=== PATIENT | male | born 1990 | race Caucasian/White ===

== ENCOUNTER 2018-10-24 09:02 | Inpatient (IN) | payer SELFPAY ==
[~2018-10-24] VITALS: Ht 172.7 cm; Wt 77.3 kg
[2018-10-24 10:04] LABS: APPEARANCE CLEAR (CLEAR); BILIRUBIN NEGATIVE (NEGATIVE); COLOR YELLOW (YELLOW); GLUCOSE NEGATIVE (NEGATIVE); KETONE NEGATIVE (NEGATIVE); NITRITE NEGATIVE (NEGATIVE); PROTEIN NEGATIVE (NEGATIVE); SPECIFIC GRAVITY 1.015 (1.005-1.020); UROBILINOGEN NORMAL (NORMAL)
[2018-10-24 10:06] LABS: BASOPHILS 0.3 % (0-2); EOSINOPHILS 0.2 % (0-7); HEMATOCRIT 43.2 % (42.0-54.0); HEMOGLOBIN 16.5 g/dL (13.5-17.5); IMMATURE GRANULOCYTES 0.2 % (0-5); LYMPHOCYTES 18.1 % (15-50); MCH 32.8 pg (26.0-34.0); MCHC 38.2 g/dL (31.0-37.0); MCV 85.9 fL (80.0-100.0); MEAN PLATELET VOLUME 9.2 fL (7.4-10.4); NEUTROPHILS 70.2 % (40-80); PLATELET COUNT 157 10x3/uL (130-400); RBC 5.03 10x6/uL (4.20-6.10); RDW 13.1 % (11.5-14.5); WBC 8.6 10x3/uL (4.8-10.8)
[2018-10-24 10:09] LABS: UDS - AMPHET NEGATIVE QUAL (NEGATIVE); UDS - BARB NEGATIVE QUAL (NEGATIVE); UDS - BENZO NEGATIVE QUAL (NEGATIVE); UDS - COCAINE NEGATIVE QUAL (NEGATIVE); UDS - OPIATE NEGATIVE QUAL (NEGATIVE); UDS - PCP NEGATIVE QUAL (NEGATIVE); UDS - THC NEGATIVE QUAL (NEGATIVE)
[2018-10-24 10:28] LABS: ALBUMIN 4.8 g/dL (3.4-5.0); ANION GAP 14.9 mmol/L (8-16); BILIRUBIN - TOTAL 1.63 mg/dL (0.2-1.3); CALCIUM 10.4 mg/dL (8.5-10.1); CARBON DIOXIDE 27.8 mmol/L (21.0-32.0); CREATININE - SERUM 1.4 mg/dL (0.6-1.3); MAGNESIUM - SERUM 1.8 mg/dL (1.8-2.4); POTASSIUM - SERUM 3.7 mmol/L (3.5-5.1); PROTEIN - SERUM 9.2 g/dL (6.4-8.2)
--- NOTE | 2018-10-24 10:40 | NUR ---
BANANA BAG STARTED A BOLUS PER 'S VERBAL ORDER.
--- NOTE | 2018-10-24 11:15 | NUR ---
PT ON FLOOR. IN ROOM. VSS. WILL CONTINUE TO MOMITOR
[2018-10-24 11:18] VITALS: BP 136/89; Ht 172.7 cm; Wt 77.3 kg
--- NOTE | 2018-10-24 13:00 | NUR ---
PT RESTING IN BED. ATE LUNCH TRAY. FAMILY AT BEDSIDE. VSS WILL CONTINUE TO MONITOR
--- NOTE | 2018-10-24 14:12 | NUR ---
patient refuses to stay in hospital. refuses to wait for dr. black to come and see him.
--- NOTE | 2018-10-24 14:14 | NUR ---
PATIENT HAS NOW LEFT AMA ALONG SIDE MOTHER. PATIENT HAS BEEN INFORMED TO SEEK HELP IF NEEDED. AMA PAPER SIGNED AND WITNESSED BY HE GILLIAM.
--- NOTE | 2018-10-24 14:31 | MORECARE ---
CASE MANAGEMENT DISCHARGE SUMMARY PATIENT: RUPERT TORRES UNIT: [id number] ADM DATE: 10/24/18 AGE: 28 : 89 SEX: M ROOM/BED: D.2305 AUTHOR: KVNG HORAN PHYSICIAN: REFERRING PHYSICIAN: HARRISON AMADOR MD DATE OF SERVICE: 10/24/18 Discharge Plan Patient Name: RUPERT TORRES [facility] [facility] 1990 Planned Disposition: Home Anticipated Discharge Date: 10/24/18 Discharge Date: Expected LOS: 1 Initial Reviewer: [email or web address] Initial Review Date: 10/24/2018 Generated: 10/24/18 3:30 pm Patient Name: RUPERT TORRES Page [id number] at 1431 All edits/amendments must be made on the electronic document DICTATION DATE: 10/24/18 143 SYSTEMS SPEC: LUIS ARMANDO 10/24/18 1430 RPT#: [id number] DC DATE: STATUS: ADM IN [facility] [address] [place] [address] END OF REPORT
== END 2018-10-24 14:16 | disposition left against medical advice (07) | DRG 894 ==
LOC: D.ER 09:02 → D.ICU 10:27
PROVIDERS: Family Medicine; ADMIT Family Medicine; ATTEND Family Medicine
DX: F10.231 Alcohol dependence with withdrawal delirium (principal); F17.200 Nicotine dependence, unspecified, uncomplicated